=== PATIENT | female | born 1935 | race Caucasian/White ===

== ENCOUNTER 2025-09-22 17:39 | Inpatient (IN) | payer MEDICARE, OTHER ==
[~2025-09-22] VITALS: Ht 154.9 cm; Wt 77.6 kg
[2025-09-22 18:35] LABS: PLATELET COUNT (AUTO) 233 K/uL (150-450); RED BLOOD CELL COUNT(AUTO) 4.81 MIL/uL (4.0-5.2); RED CELL DISTRIBUTION WIDTH 17.0 % (11.5-15.0); WHITE BLOOD COUNT (AUTO) 5.4 K/uL (4.3-11.0)
[2025-09-22 18:47] LABS: ASPARTATE AMINOTRANSFERASE 16 U/L (15-37); CALCIUM, SERUM 8.7 mg/dL (8.5-10.1); CREATININE 0.7 mg/dL (0.6-1.3); SODIUM SERUM 149 mmol/L (136-145); TOTAL PROTEIN, SERUM 7.7 g/dL (6.4-8.2); UREA NITROGEN, BLOOD 18 mg/dL (7-18)
[2025-09-22 19:11] LABS: APPEARANCE,URINE CLEAR (CLEAR); BLOOD, URINE NEGATIVE Ery/uL (NEGATIVE); LEUKOCYTE ESTERASE ,URINE NEGATIVE (NEGATIVE); NITRITE, URINE NEGATIVE (NEGATIVE); UGLUCOSE NEGATIVE (NEGATIVE)
[2025-09-22] MEDS ORDERED: ENOXAPARIN SODIUM 100 MG/ML DISP.SYRIN SQ ONE (19:52)
[2025-09-22] MEDS: ENOXAPARIN SODIUM 100 MG/ML DISP.SYRIN SQ ONE (19:53)
[2025-09-22] MEDS ORDERED: ACETAMINOPHEN 325 MG TABLET PO PRN (21:30)
[2025-09-22] MEDS ORDERED: MAGNESIUM HYDROXIDE 30 ML UDC PO PRN (21:30)
[2025-09-22] MEDS ORDERED: MAG HYDROX/AL HYDROX/SIMETH 30 ML UDC PO PRN (21:30)
[2025-09-22] MEDS ORDERED: ONDANSETRON HCL/PF 4 MG/2 ML VIAL IVP PRN (21:30)
[2025-09-22] MEDS ORDERED: Z GUARD REMEDY 4 OZ OINT TP PRN (21:30)
[2025-09-22 22:15] VITALS: BP 170/68; TEMP 97.5; O2SAT 100
[2025-09-23] VITALS (8 sets, daily range): BP systolic 137–181; BP diastolic 51–72; TEMP 97.5–99.1; O2SAT 96–100
[2025-09-23] MEDS: HYDROCODONE/APAP 5/325MG TABLET PO PRN (00:05)
[2025-09-23 07:41] LABS: PLATELET COUNT (AUTO) 186 K/uL (150-450); RED BLOOD CELL COUNT(AUTO) 4.20 MIL/uL (4.0-5.2); RED CELL DISTRIBUTION WIDTH 16.8 % (11.5-15.0); WHITE BLOOD COUNT (AUTO) 4.4 K/uL (4.3-11.0)
[2025-09-23 08:04] LABS: CALCIUM, SERUM 8.5 mg/dL (8.5-10.1); CREATININE 0.7 mg/dL (0.6-1.3); PHOSPHORUS 3.3 mg/dL (2.5-4.9); SODIUM SERUM 147.0 mmol/L (136-145); UREA NITROGEN, BLOOD 19.0 mg/dL (7-18)
[2025-09-23 08:09] LABS: LDL 126.0 mg/dL (0-99)
[2025-09-23] MEDS: PANTOPRAZOLE 40 MG TABLET.DR PO SCH (08:32)
[2025-09-23] MEDS: ASPIRIN 81 MG TAB.CHEW PO SCH (09:00)
[2025-09-23] MEDS: ENOXAPARIN SODIUM 100 MG/ML DISP.SYRIN SQ SCH (09:00)
[2025-09-23] MEDS: ATORVASTATIN 40 MG TABLET PO SCH (10:28)
[2025-09-23] MEDS: POTASSIUM CHLORIDE 20 MEQ TAB.PRT.SR PO SCH (10:28)
[2025-09-23] MEDS: IV D5W 1,000 ML IV PRN (15:56)
[2025-09-23] MEDS: AMLODIPINE BESYLATE 10 MG TABLET PO SCH (16:10)
[2025-09-24] VITALS: BP_SYST 141; BP_SYST 156; BP_DIAS 61; BP_DIAS 64; TEMP 98.1; O2SAT 97; O2SAT 98
[2025-09-24 04:00] VITALS: BP_SYST 139; BP_SYST 150; BP_DIAS 65; TEMP 97.9; O2SAT 98
[2025-09-24 06:46] LABS: PLATELET COUNT (AUTO) 194 K/uL (150-450); RED BLOOD CELL COUNT(AUTO) 3.88 MIL/uL (4.0-5.2); RED CELL DISTRIBUTION WIDTH 16.2 % (11.5-15.0); WHITE BLOOD COUNT (AUTO) 4.8 K/uL (4.3-11.0)
[2025-09-24 06:58] LABS: ASPARTATE AMINOTRANSFERASE 11.0 U/L (15-37); CALCIUM, SERUM 8.0 mg/dL (8.5-10.1); CREATININE 0.6 mg/dL (0.6-1.3); PHOSPHORUS 2.8 mg/dL (2.5-4.9); SODIUM SERUM 145.0 mmol/L (136-145); TOTAL PROTEIN, SERUM 6.1 g/dL (6.4-8.2); UREA NITROGEN, BLOOD 19.0 mg/dL (7-18)
[2025-09-24 09:23] VITALS: BP 177/69; TEMP 97.3; O2SAT 98
[2025-09-24] MEDS ORDERED: AMLO-212 PO (10:55)
[2025-09-24] MEDS ORDERED: IBUP-1955 PO (10:55)
[2025-09-24] MEDS ORDERED: POTA20PA40 PO (10:55)
[2025-09-24] MEDS ORDERED: DOCU-141 PO (10:55)
[2025-09-24] MEDS ORDERED: CARB15DR12 EACH EAR (10:55)
[2025-09-24] MEDS ORDERED: TRAM50TA PO (10:55)
[2025-09-24] MEDS ORDERED: CELE-85 PO (10:55)
[2025-09-24] MEDS ORDERED: METH5TAB6 PO (10:55)
[2025-09-24] MEDS ORDERED: ASCO500T23 PO (10:55)
[2025-09-24] MEDS ORDERED: ACET325T53 PO (10:55)
[2025-09-24] MEDS ORDERED: CHOL100062 PO (10:55)
[2025-09-24] MEDS ORDERED: METO50TA16 PO (10:55)
[2025-09-24] MEDS ORDERED: LOSA100T31 PO (10:55)
[2025-09-24 16:00] VITALS: BP 134/63; TEMP 97.9; O2SAT 100
[2025-09-24 20:00] VITALS: BP 163/64; TEMP 97.8; O2SAT 99
[2025-09-24 20:37] VITALS: BP 150/80; TEMP 97.8; O2SAT 99
[2025-09-25 08:07] LABS: PLATELET COUNT (AUTO) 208 K/uL (150-450); RED BLOOD CELL COUNT(AUTO) 4.24 MIL/uL (4.0-5.2); RED CELL DISTRIBUTION WIDTH 16.5 % (11.5-15.0); WHITE BLOOD COUNT (AUTO) 5.2 K/uL (4.3-11.0)
[2025-09-25 08:21] LABS: CALCIUM, SERUM 8.6 mg/dL (8.5-10.1); CREATININE 0.6 mg/dL (0.6-1.3); PHOSPHORUS 3.3 mg/dL (2.5-4.9); SODIUM SERUM 143.0 mmol/L (136-145); UREA NITROGEN, BLOOD 16.0 mg/dL (7-18)
[2025-09-25] MEDS: LOSARTAN POTASSIUM 50 MG TABLET PO SCH (08:56)
[2025-09-25] MEDS: ENOXAPARIN SODIUM 80 MG/0.8 ML DISP.SYRIN SQ SCH (08:58)
[2025-09-25] MEDS: METOPROLOL TARTRATE 50 MG TABLET PO SCH (08:58)
[2025-09-25] MEDS: ASCORBIC ACID 500 MG TABLET PO SCH (08:58)
[2025-09-25] MEDS: METHIMAZOLE (5MG) 5 MG TABLET PO SCH (09:01)
[2025-09-25 20:00] VITALS: BP 151/52; TEMP 98.1; O2SAT 98
[2025-09-26 07:00] VITALS: BP 144/62; TEMP 97.7; O2SAT 98
[2025-09-26] MEDS ORDERED: HYDR-4077 PO (07:59)
[2025-09-26] MEDS ORDERED: AMLO-213 PO (07:59)
[2025-09-26 11:27] VITALS: BP 162/108
[2025-09-26] MEDS: CLONIDINE HCL 0.1 MG TABLET PO ONE (11:27)
== END 2025-09-26 11:45 | DRG 280 ==
LOC: ER 17:47 → TELE 20:46 → MED 09-24 08:41 → UNDODISIN 09-25 16:15
PROVIDERS: ADMIT Nurse Practitioner Acute Care; ATTEND Nurse Practitioner Family
DX: I16.0 Hypertensive urgency (principal); L89.613 Pressure ulcer of right heel, stage 3; I21.A1 Myocardial infarction type 2; E87.0 Hyperosmolality and hypernatremia; L89.896 Pressure-induced deep tissue damage of other site; Z68.41 Body mass index [BMI] 40.0-44.9, adult; I10 Essential (primary) hypertension; E66.01 Morbid (severe) obesity due to excess calories; E78.5 Hyperlipidemia, unspecified; R73.9 Hyperglycemia, unspecified; Z86.73 Personal history of transient ischemic attack (TIA), and cerebral infarction without residual deficits; Z79.899 Other long term (current) drug therapy; B35.1 Tinea unguium; E87.6 Hypokalemia; R53.1 Weakness; E86.0 Dehydration; E86.9 Volume depletion, unspecified
CPT/HCPCS: 36415; 71045-TC; 80048-TC; 80053-TC; 80061-TC; 80076-TC; 82962-TC; 83690-TC; 83735-TC; 84100-TC; 84443-TC; 84484-TC; 85025-TC; 93307-TC; 97112-TC; 97530-TC; 97535-TC; A4223; G0378; J1650; J7070